=== PATIENT | female | born 1980 | race Hispanic/Latino ===

== ENCOUNTER 2018-12-21 23:43 | Inpatient (IN) | payer OTHER ==
[~2018-12-21] VITALS: Ht 165.1 cm; Wt 119.7 kg
[2018-12-22] MEDS ORDERED: AMPICILLIN 2GM+NS 100ML 100 ML IV ONE (00:08)
[2018-12-22] MEDS ORDERED: LACTATED RINGERS 1000ML 1,000 ML IV PRN (00:16)
[2018-12-22 00:29] LABS: HEMATOCRIT 35.9 % (36-48); MEAN CORPUSCULAR HEMOGLOBIN 31.1 pg (27.0-33.0); MEAN CORPUSCULAR HGB CONC 33.9 g/dL (32.0-36.0); MEAN CORPUSCULAR VOLUME 91.9 fL (79-99); PLATELET COUNT (AUTO) 182 K/uL (130-400); RED BLOOD CELL COUNT(AUTO) 3.91 MIL/uL (4.00-5.50); RED CELL DISTRIBUTION WIDTH 13.5 % (11.0-15.5); WHITE BLOOD COUNT (AUTO) 12.5 K/uL (4.8-10.8)
[2018-12-22] MEDS ORDERED: OXYTOCIN-LR 20 UNITS/1000 ML 1,000 ML IV SCH (00:30)
[2018-12-22 00:31] LABS: BASOPHILS % (AUTO) 1.8 % (0.0-5.0); EOSINOPHILS % (AUTO) 0.2 % (0.0-8.0); LYMPHOCYTES % (AUTO) 9.7 % (21.0-51.0); MONOCYTES % (AUTO) 3.5 % (3.0-13.0); NEUTROPHILS % (AUTO) 84.8 % (40.0-77.0)
[2018-12-22 00:45] LABS: CREATININE 0.8 mg/dL (0.5-1.5)
[2018-12-22 00:48] LABS: INR 0.89 (0.85-1.15); PARTIAL THROMBOPLASTIN TIME 22.9 SEC (26.3-35.5); PROTHROMBIN TIME 9.4 SEC (9.6-11.6)
[2018-12-22] MEDS ORDERED: OXYTOCIN 10 USP UNITS/ML ONE (00:48)
[2018-12-22 00:51] LABS: ALBUMIN 2.8 g/dL (3.5-5.0); BILIRUBIN,TOTAL 0.2 mg/dL (0.2-1.0); URIC ACID 4.4 mg/dL (2.6-7.2)
[2018-12-22 00:53] LABS: AMPHET/METH SCREEN,URINE NEGATIVE (NEGATIVE); BARBITURATE SCREEN, URINE NEGATIVE (NEGATIVE); BENZODIAZEPINES SCREEN,URINE NEGATIVE (NEGATIVE); CANNABINOID SCREEN,URINE NEGATIVE (NEGATIVE); COCAINE SCREEN,URINE NEGATIVE (NEGATIVE); OPIATE SCREEN,URINE NEGATIVE (NEGATIVE); PHENCYCLIDINE SCREEN,URINE NEGATIVE (NEGATIVE)
[2018-12-22] MEDS ORDERED: OXYTOCIN-LR 20 UNITS/1000 ML 1,000 ML IV ONE (01:25)
[2018-12-22] MEDS ORDERED: LACTATED RINGERS 1000ML 1,000 ML IV ONE (01:25)
[2018-12-22] MEDS ORDERED: DIPH,PERTUSS(ACELL),TET VAC/PF 0.5 ML VIAL IM PRN (02:15)
[2018-12-22] MEDS ORDERED: BENZOCAINE/LANOLIN/ALOE VERA 60 ML AEROSOL TP PRN (02:15)
[2018-12-22] MEDS ORDERED: ACETAMINOPHEN 325 MG TAB PO PRN (02:15)
[2018-12-22] MEDS ORDERED: ACETAMINOPHEN-CODEINE 300/30MG TAB PO PRN (02:15)
[2018-12-22] MEDS ORDERED: MEASLES/MUMPS/RUBELLA VACCINE, LIVE 0.5 ML/VIAL SQ PRN (02:15)
[2018-12-22] MEDS ORDERED: WITCH HAZEL 1 PAD TP PRN (02:15)
[2018-12-22] MEDS ORDERED: LANOLIN 30GM OINTMENT TP PRN (02:15)
[2018-12-22] MEDS: IBUPROFEN 600 MG TABLET PO PRN ×2 (05:20→15:34)
[2018-12-22 05:31] VITALS: BP 136/74
[2018-12-22 05:31] LABS: HEMATOCRIT 32.4 % (36-48); MEAN CORPUSCULAR HEMOGLOBIN 31.6 pg (27.0-33.0); MEAN CORPUSCULAR HGB CONC 33.8 g/dL (32.0-36.0); MEAN CORPUSCULAR VOLUME 93.4 fL (79-99); PLATELET COUNT (AUTO) 180 K/uL (130-400); RED BLOOD CELL COUNT(AUTO) 3.47 MIL/uL (4.00-5.50); RED CELL DISTRIBUTION WIDTH 13.5 % (11.0-15.5); WHITE BLOOD COUNT (AUTO) 15.7 K/uL (4.8-10.8)
--- NOTE | 2018-12-22 07:15 | NUR ---
REPORT RECEIVED FROM L/D NURSE, SUZANNA AND PATIENT WAS TRANSFERED TO UNIT AT 0730. PATIENT ORIENTED TO UNIT AND CALL LIGHT LEFT AT BEDSIDE TO CALL FOR ASSISTANCE NEEDED. PATIENT HAS VITAL SIGNS WITHIN NORMAL LIMITS AND DENIES PAIN AT THIS TIME. INDICATED WANTING TO HAVE ALL VACCINES.
[2018-12-22 07:30] VITALS: BP 128/80
[2018-12-22 08:33] LABS: RAPID PLASMA REAGIN NONREACTIVE (NONREACTIVE)
[2018-12-22] MEDS: DOCUSATE SODIUM 100 MG CAP PO SCH ×2 (08:48→21:14)
--- NOTE | 2018-12-22 11:30 | NUR ---
PATIENT UP AND VOIDED 200CC AND WAS ENCOURAGED TO INCREASE FLUID INTAKE. ESPECIALLY WHILE .
[2018-12-22 12:12] VITALS: BP 138/80
[2018-12-22] MEDS ORDERED: FLU VACC QS2019-20 36MOS UP/PF 60 MCG/0.5 ML ML IM ONE (14:45)
[2018-12-22] MEDS: FLU VACC QS2019-20 36MOS UP/PF 60 MCG/0.5 ML ML IM SCH (15:12)
--- NOTE | 2018-12-22 15:12 | NUR ---
PATIENT WAS ISSUED A SITZ BATH AND DERMAPLAST SPRAY AND INSTRUCTED ON USE. ALL VACCINES TDAP, MMR AND FLU VACCINES WERE ADMINISTERED AND PATIENT TOLERATED VACCINES WELL.
[2018-12-22 17:07] VITALS: BP 134/82
[2018-12-22 19:20] VITALS: BP 128/89
[2018-12-22 20:34] VITALS: BP 128/89
[2018-12-23] VITALS (7 sets, daily range): BP systolic 116–144; BP diastolic 60–92
[2018-12-23] MEDS: IBUPROFEN 600 MG TABLET PO PRN ×2 (04:50→17:52)
[2018-12-23 08:11] LABS: HEPATITIS Bs ANTIGEN SCREEN P Negative (Negative)
[2018-12-23] MEDS: DOCUSATE SODIUM 100 MG CAP PO SCH ×2 (08:24→20:21)
--- NOTE | 2018-12-23 09:00 | NUR ---
PATIENT WENT TO NURSERY TO FEED BABY.
--- NOTE | 2018-12-23 11:00 | NUR ---
DR. ROUSE CALLED RE PATIENT STATUS AND WAS MADE AWARE OF PATIENT REMAINING STABLE BUT BABY WILL BE STAYING DUE TO BEING UNDER BILI LIGHT. INDICATED PATIENT COULD STAY TO CONTINUE ON DEMAND AND WILL SEE HER IN A.M. FOR DISCHARGE.
--- NOTE | 2018-12-23 15:45 | NUR ---
PATIENT REQUESTING BREAST PUMP AND WAS INSTRUCTED TO ASK NURSERY FOR BREAST PUMP NEXT TIME SHE GOES TO BREASTFEED BABY.
[2018-12-23] MEDS: FLU VACC QS2019-20 36MOS UP/PF 60 MCG/0.5 ML ML IM SCH (20:29)
[2018-12-24 03:38] VITALS: BP 123/75
[2018-12-24] MEDS: IBUPROFEN 600 MG TABLET PO PRN ×2 (03:38→08:41)
[2018-12-24 07:25] VITALS: BP 135/78
--- NOTE | 2018-12-24 07:25 | NUR ---
UP TO CHAIR BABY AND BONDING WELL WITH . 2+ PITTING EDEMA NOTED TO LOWER EXTREMITIES. DENIES PAIN A THIS TIME AND STATES HAVING HAD A BM THIS MORNING.
[2018-12-24] MEDS: DOCUSATE SODIUM 100 MG CAP PO SCH (08:39)
--- NOTE | 2018-12-24 09:30 | NUR ---
RESTING IN BED AFTER BABY AND BABY SLEEPING QUIETLY AT BEDSIDE. DENIES NEEDING ANYTHING FOR PAIN.
--- NOTE | 2018-12-24 10:30 | NUR ---
DR. ROUSE ROUNDED AND DISCHARGED PATIENT TO HOME. PATIENT IS TO FOLLOW UP WITH BETSY HARRY CNM ON 12/29/18 AT 2:00PM.
--- NOTE | 2018-12-24 11:45 | NUR ---
VITAL SIGNS DONE AND DISCHARGE INSTRUCTIONS GIVEN. PT VERBALIZED UNDERSTANDING INSTRUCTIONS GIVEN.
[2018-12-24 12:00] VITALS: BP 133/61
--- NOTE | 2018-12-24 12:35 | NUR ---
PATIENT WAS TAKEN VIA W/C TO [facility] C[facility]YING BABY IN [place]. BABY IS SLEEPING AND PATIENT DENIES PAIN AT THIS TIME. MOTRIN WAS GIVEN TO PATIENT PRIOR TO DISCHARGE FOR UTERINE CRAMPING. PATIENT BABY PRIOR TO DISCHARGE. Addendum: 12/24/18 at 1251 by MANISH HAYES RN [id number] BABY PRIOR TO DISCHARGE BUT DENIES PAIN. NO MEDS GIVEN PRIOR TO DISCHARGE ONLY SCRIPT FOR MOTRIN.
== END 2018-12-24 12:35 | disposition home or self-care (01) | DRG 807 ==
LOC: EDH 23:43 → LDH 23:55 → OBSVTOIN 23:55 → WSH 12-22 07:27
PROVIDERS: ADMIT Obstetrics & Gynecology; ATTEND Obstetrics & Gynecology
PROC: 10E0XZZ Delivery of Products of Conception, External Approach (ICD-10-PCS; principal; 2018-12-21)
PROC: 0HQ9XZZ Repair Perineum Skin, External Approach (ICD-10-PCS; 2018-12-21)
PROC: 3E0234Z Introduction of Serum, Toxoid and Vaccine into Muscle, Percutaneous Approach (ICD-10-PCS; 2018-12-22)
DX: O99.214 Obesity complicating childbirth (principal); Z37.0 Single live birth; E66.01 Morbid (severe) obesity due to excess calories; Z3A.00 Weeks of gestation of pregnancy not specified; O70.0 First degree perineal laceration during delivery; Z23 Encounter for immunization
CPT/HCPCS: 36415; 80053; 80305; 84550; 85025; 85027; 85384; 85610; 85730; 86592; 86701; 86850; 86900; 86901; 87340; 87390; 90707; 90715; G0008; G0378; J0290; J2590; J7120; Q2035